=== PATIENT | female | born 1975 | race Caucasian/White ===

== ENCOUNTER → 2020-11-28 13:58 | Outpatient (CLI) | payer SELFPAY ==
[2020-11-28 15:21] LABS: Absolute Lymphocyte Count 1.73 X10^3/uL (0.83-4.51); Absolute Neutrophil Count 2.9 X10^3/uL (2.0-7.7); Basophil# 0.04 X10^3/uL; Basophil% 0.8 % (0-1); Eosinophil# 0.04 X10^3/uL; Eosinophils% 0.8 % (0-5); Hematocrit 44.9 % (37-47); Hemoglobin 14.1 g/dL (12.0-15.0); Lymphocyte # 1.73 X10^3/ul (4.0); Mean Corp Hgb Conc 31.4 g/dL (32-36); Mean Corpuscular Hgb 28.1 pg (27.0-32.0); Mean Corpuscular Volume 89.4 fL (81-99); Mean Platelet Vol. 9.3 fl (6.2-12.0); Monocyte# 0.38 X10^3/uL; Monocyte% 7.5 % (0-10); NRBC Flagged by Analyzer 0 % (0-5); Neutrophil # 2.89 X10^3/uL (2.7-7.7); Neutrophil % 56.7 % (47-70); Platelet Count 312 K/mm3 (150-450); RBC Distribution Width CV 12.9 % (11.6-14.6); RBC Distribution Width SD 42.6 fl (35.1-43.9); Red Blood Count 5.02 M/mm3 (4.2-5.4); White Blood Count 5.1 K/mm3 (4.4-11.0)
[2020-11-28 16:04] LABS: AST(SGOT) 5 U/L (15-37); Alanine Aminotransfer ALT/SGPT 23 U/L (13-56); Albumin, Serum 3.8 g/dL (3.2-5.0); Alkaline Phosphatase 54 U/L (45-117); Anion Gap 6 (5-15); BUN 13 mg/dL (7-18); BUN/Creat Ratio 17.9 RATIO (10-20); Calcium,Total 9.4 mg/dL (8.5-10.1); Chloride 105 mmol/L (98-107); Creatinine, Serum 0.73 mg/dL (0.55-1.02); EST Glomerular Filtration Rate 93 mL/min (>60); Est Glom Filt Rate - Afr Amer 113 mL/min (>60); Estradiol 157.6 pg/mL; Free T3 2.6 pg/mL (2.18-3.98); Globulin 3.7 g/dL (2.2-4.2); Glucose 79 mg/dL (74-106); Potassium 3.7 mmol/L (3.5-5.1); Protein, Total 7.5 g/dL (6.4-8.2); Sodium Level 138 mmol/L (136-145); T4 Free Direct 1.01 ng/dL (0.76-1.46); Thyroid Stim Hormone (TSH) 0.98 uIU/mL (0.358-3.74)
[2020-11-28 17:03] LABS: Progesterone Level 0.53 ng/mL (See Comment); Vitamin B12 570 pg/mL (211-911); Vitamin D,25 Hydroxy 40.7 ng/mL
== END ==
PROVIDERS: PCP Specialist; Referring Provider Specialist; Visit Provider Specialist
DX: E55.9 Vitamin D deficiency, unspecified (principal); E28.8 Other ovarian dysfunction; R53.83 Other fatigue
CPT/HCPCS: 36415; 80053; 82306; 82607; 82627; 82670; 84144; 84403; 84439; 84443; 84481; 85025; 82626

== ENCOUNTER → 2025-06-29 | Outpatient (CLI) | payer OTHER, SELFPAY ==
[2025-06-29 12:43] LABS: AST(SGOT) 10 U/L (<=31); Alanine Aminotransfer ALT/SGPT 13 U/L (<=34); Albumin, Serum 4.1 g/dL (3.5-5.0); Alkaline Phosphatase 49 U/L (35-104); Bilirubin, Direct 0.18 mg/dL (0.00-0.30); Cholesterol 242 mg/dL (<=200); Globulin 2.8 g/dL (2.2-4.2); Low Density Lipoprotein Calc. 163 mg/dL; Triglycerides 121 mg/dL; Very Low Density Lipoprotein 24 mg/dL (5-40); cholesterol:hdl ratio screen 4.41
--- OUTSIDE RECORDS SUMMARY | 2025-06-29 13:28 | XMS RPT_ITS | CCD ---
Author Organization [facility] Care Team Providers Care Interventional Tech Name Role Phone Yolanda He NP Attending Unavailable Guy Siegel Primary Care Unavailable Guy Siegel Referring Unavailable Guy Siegel Primary Care Unavailable Roselyn Cobb Attending Unavailable Guy Siegel Primary Care Unavailable Murray Marie Attending Unavailable SELF Referring Unavailable FLAKITO HUFF JR Attending Unavailable Unavailable Primary Care Provider Unavailsd soto Allergies Allergy Classification Reported Allergen(s) Allergy Type Date of Onset Reaction(s) Facility (2 sources) Cephalexin; Translations: [CEPHALEXIN] Drug Allergy 08-19-2008 Rash, Itching [facility] Repository Medications Current Medications Medication Drug Class(es) Dates Sig (Normalized) Sig (Original) azithromycin 500 mg oral tablet (1 source) Macrolide Antimicrobial Start: 03-08-2025 End: 03-11-2025 take 1 tablet by mouth once daily azithromycin (ZITHROMAX) 500 mg tablet Indications: Bacterial sinusitis Take 1 tablet by mouth once daily for 3 days. 3 tablet 03/08/2025 03/11/2025 Active cephalexin 500 mg oral capsule (1 source) Cephalosporin Antibacterial Start: 08-12-2008 CEPHALEXIN 500 MG CAP Indications: Cellulitis and abscess of unspecified site Take one(1) tablet four(4) times daily. 40 0 08/12/2008 Active predniSONE 20 mg oral tablet (1 source) Start: 08-25-2008 PREDNISONE 20 MG TAB Indications: Other specified viral exanthemata Take 3 tablets daily for 4 days, then 2 tablets daily for 4 days then 1 tablet daily for 4 days then 1/2 tablet daily until gone. 26 0 08/25/2008 Active triamcinolone acetonide 1 mg/ml topical cream (1 source) Corticosteroid Start: 08-12-2008 triamcinolone acetonide(KENALOG 0.1 % TOPICAL CREAM) Indications: Other atopic dermatitis and related conditions Apply to affected area(s) 2-3 times daily. 45 grams 0 08/12/2008 Active Problems Problem Classification Problem Date Documented Da te Episodic/Chronic Bacterial infection; unspecified site (1 source) Other specified bacterial agents as the cause of diseases classified elsewhere; Translations: [Bacterial sinusitis] Onset: 03-08-2025 Episodic Other upper respiratory infections (2 sources) Chronic sinusitis, unspecified; Translations: [Bacterial sinusitis] Onset: 03-08-2025 03-08-2025 Chronic Results Test Name Value Interpretation Reference Range Facil ity CNOVon 03-08-2025 CNOV Office Visit ([facility] ) RERE RONQUILLO ([id number]) 1975 F Date Time Provider Department 03/08/25 7:35 PM FLAKITO HUFF JR [facility] During your visit today, we recorded the following information about you: Temperature Pulse Respiration Blood pressure 98.2 degrees 104/minute 18/minute 132/88 Weight Last Period 63.5 kg 02/18/25 Flakito Huff Jr., GRAVITY PROSPECTING SUPERVISOR.WEALTH MANAGEMENT MANAGER 03/08/2025 8:52 PM Signed - Fill and start the Augmentin (amoxicillin/clavulanat e) prescription sent to your pharmacy and take it exactly as directed to treat your sinus infection. - Continue your home remedies (such as garlic and tea) if you find them helpful. - You declined nasal decongestants and cough medicine today; do not start these unless your symptoms change and you wish to try them. Flakito Huff Jr., GRAVITY PROSPECTING SUPERVISOR.WEALTH MANAGEMENT MANAGER 03/08/2025 8:59 PM Signed [facility] JEAN Millerkristel Ronquillo is a 49 year old female. Patient presents with: Fever: Chills, stuffy nose Started yesterday HPI Sinus Infection: - Reports fever and chills last night, managed with Tylenol. - Currently experiencing nasal congestion and clear rhinorrhea. - Denies significant pain today; managed with natural remedies every few hours. - Denies nausea, emesis, headaches, or significant myalgias. - Reports severe fatigue. - Denies need for nasal decongestants or cough medicine. - Allergic to cephalexin; no known allergies to Augmentin or azithromycin. Review of Systems Constitutional: (+) fever, (+) chills, (+) fatigue Head: (-) headache Ears/Nose/Mouth/Throat: (+) nasal congestion, (+) rhinorrhea, (+) facial pain Gastrointestinal: (-) nausea, (-) vomiting Musculoskeletal: (-) myalgia Objective BP 132/88 Pulse 104 Temp 36.8 ?C (98.2 ?F) Resp 18 Wt 63.5 kg (140 lb) LMP 02/18/2025 (Approximate) SpO2 100% Physical Exam General: No acute distress. HEENT: Bilateral maxillary sinus tenderness to palpation, no submandibular or anterior cervical lymphadenopathy, right tympanic membrane pearly cabrales with no signs of infection, left tympanic membrane pearly cabrales with no signs of infection, oropharynx unremarkable, bilateral turbinate edema with mild erythema and some drainage. CV: Heart sounds normal, regular rhythm. Resp: Lungs clear to auscultation. Abd: Bowel sounds normal, no tenderness to palpation. {1. Bacterial sinusitis (J32.9) - Bilateral maxillary sinus tenderness to palpation, bilateral turbinate edema, mild erythema, and drainage observed on exam. - No submandibular or anterior cervical lymphadenopathy. - Tympanic membranes are pearly cabrales bilaterally with no signs of infection. - Oral pharynx is unremarkable. - Lungs clear to auscultation. - Discussed treatment options including Augmentin and Zithromax. - Patient has a documented allergy to cephalexin. - Prescribed Zithromax. - Patient declined nasal decongestants and cough medicine. - Advised to monitor symptoms and report any worsening. Recording using BullGuard software for draft documentation of the visit was discussed with the patient/authorized event representative; all questions welcomed and answered. Patient/authorized event representative agreed to proceed MDM Procedures Referring Provider: SELF [[id number]] Allergies As of Date: 03/08/2025 Noted Allergy Reaction CEPHALEXIN 08/19/2008 2 - Rash 9 - Itching Date Reviewed: 03/08/2025 Reviewed by: Flakito Huff Jr., GRAVITY PROSPECTING SUPERVISOR.WEALTH MANAGEMENT MANAGER - Fully Assessed Reason for Visit: Fever [47] Cmt: Chills, stuffy nose Started yesterday Primary Visit Diagnosis:Bacterial sinusitis [J32.9, B96.89] Order(s):azithromycin (ZITHROMAX) 500 mg tabletTake 1 tablet by mouth once daily for 3 days.Disp: 3 tabletRfl: 0 Prescriptions as of 03/08/2025 - azithromycin (ZITHROMAX) 500 mg tablet Take 1 tablet by mouth once daily for 3 days. - PREDNISONE 20 MG TAB Take 3 tablets daily for 4 days, then 2 tablets daily for 4 days then 1 tablet daily for 4 days then 1/2 tablet daily until gone. - triamcinolone acetonide(KENALOG 0.1 % TOPICAL CREAM) Apply to affected area(s) 2-3 times daily. - CEPHALEXIN 500 MG CAP Take one(1) tablet four(4) times daily. Problem List As Of Date: 03/08/2025 (None) Other instructions from your clinician: - Fill and start the Augmentin (amoxicillin/clavulanat e) prescription sent to your pharmacy and take it exactly as directed to treat your sinus infection. - Continue your home remedies (such as garlic and tea) if you find them helpful. - You declined nasal decongestants and cough medicine today; do not start these unless your symptoms change and you wish to try them. Prescriptions ordered this encounter Disp Refills Start End AZITHROMYCIN 500 MG TABLET 3 ta* 0 03/08/2025 03/11/2025 Route: PO Sig: Take 1 tablet by mouth once daily for 3 days. Encounter Status:Closed by (more content not included)... Normal [facility] Vital Signs Date Time Vital Sign Value Performing Clinician Garett greene 03-08-2025 20:20-0400 Body temperature 98.2 [degF] Flakito Huff Jr., APRN.FELIPE Work Phone: [facility] 03-08-2025 20:20-0400 Body weight 63.5 kg Flakito Huff Jr., GRAVITY PROSPECTING SUPERVISOR.FELIPE Work Phone: [facility] 03-08-2025 20:20-0400 Diastolic blood pressure 88 mm[Hg] Flakito Daria Jr., GRAVITY PROSPECTING SUPERVISOR.WEALTH MANAGEMENT MANAGER Work Phone: [facility] 03-08-2025 20:20-0400 Heart rate 104 /min Flakito Huff Jr., GRAVITY PROSPECTING SUPERVISOR.WEALTH MANAGEMENT MANAGER Work Phone: [facility] 03-08-2025 20:20-0400 Respiratory rate 18 /min Flakito Huff Jr., GRAVITY PROSPECTING SUPERVISOR.WEALTH MANAGEMENT MANAGER Work Phone: [facility] 03-08-2025 20:20-0400 SaO2% (BldA) [Mass fraction] 100 % Flakito Huff Jr., GRAVITY PROSPECTING SUPERVISOR.WEALTH MANAGEMENT MANAGER Work Phone: [facility] 03-08-2025 20:20-0400 Systolic blood pressure 132 mm[Hg] Flakito Huff Jr., GRAVITY PROSPECTING SUPERVISOR.WEALTH MANAGEMENT MANAGER Work Phone: [facility] Encounters Encounter Date Encounter Type Care Provider Facility Start: 03-08-2025 End: 03-08-2025 Patient encounter procedure Flakito Huff GRAVITY PROSPECTING SUPERVISOR.WEALTH MANAGEMENT MANAGER Work Phone: [facility] Jean Comment on above: Bacterial sinusitis (Primary Dx) Start: 03-08-2025 End: 03-08-2025 ambulatory SELF Facility:[id number] Start: 01-20-2024 ambulatory Yolanda He NP Facili ty:[facility] Start: 08-12-2023 ambulatory Guy Morrow ty:[facility] Start: 06-30-2023 ambulatory Guy Morrow ty:[facility] Plan of Treatment Date Care Activity Detail Author Start: 06-06-2025 Influenza vaccination Influenz a Vaccine (Season Ended) [facility] Start: 06-06-2024 Covid-19 Vaccine ( season) Covid-19 Vaccine ( season) [facility] Start: 2022 Diabetes Screening Diabetes Screenin g [facility] Start: 2022 Lipid panel Lipid Screening [facility] Start: 2022 Screening for malign ant neoplasm of colon [facility] Start: 2017 Screening for malign ant neoplasm of breast Mammogram Screening [facility] Start: 1998 Screening for malign ant neoplasm of cervix Cervical Cancer Screening [facility] Start: 1996 Hepatitis B Vaccine (1 of 3 - 19+ 3-dose series) Hepatitis B Vaccine (1 of 3 - 19+ 3-dose series) [facility] Start: 1996 Urine microalbumin profile DTa P,Tdap,Td Vaccine (1 - Tdap) [facility] Start: 12-12-1995 Anxiety Screening Anxiety Screening [facility] Start: 12-12-1995 Depression Screening Depression Scre ening [facility] Start: 12-12-1995 Hepatitis C screening Hepatitis C Sc reening [facility] Start: 12-12-1995 HIV screening HIV Screening [facility] Payers Date Payer Category Payer Self-pay 2023 Unknown [id number] Unknown [id number] Unknown [id number] Unknown [id number] Social History Date Type Detail Facility Start: [facility]08[facility]20[facility] Start: 03-08-2025 Tobacco use and exposure Smoke less tobacco non-user [facility] Start: 03-08-2025 Alcoholic beverage intake Curr ent non-drinker of alcohol (finding) [facility] Start: 03-08-2025 History of Social function [facility] Start: 03-08-2025 Tobacco use panel [facility] Start: 1975 Sex assigned at Not on file [facility] Progress note 03-08-2025 Note Date & Type Note Facility 03-08-2025 Note HNO ID: [id number] Author: DARIA GILLETTE, SANDIP MACHADO.WEALTH MANAGEMENT MANAGER Service: ? Author Type: Nurse Practitioner Type: Progress Notes Filed: 03/08/2025 20:59 Note Text: [facility] ANDREAFRIDA Hina Ronquillo is a 49 year old female. Patient presents with: Fever: Chills, stuffy nose Started yesterday HPI Sinus Infection: - Reports fever and chills last night, managed with Tylenol. - Currently experiencing nasal congestion and clear rhinorrhea. - Denies significant pain today; managed with natural remedies every few hours. - Denies nausea, emesis, headaches, or significant myalgias. - Reports severe fatigue. - Denies need for nasal decongestants or cough medicine. - Allergic to cephalexin; no known allergies to Augmentin or azithromycin. Review of Systems Constitutional: (+) fever, (+) chills, (+) fatigue Head: (-) headache Ears/Nose/Mouth/Throat: (+) nasal congestion, (+) rhinorrhea, (+) facial pain Gastrointestinal: (-) nausea, (-) vomiting Musculoskeletal: (-) myalgia Objective BP 132/88 Pulse 104 Temp 36.8 ?C (98.2 ?F) Resp 18 Wt 63.5 kg (140 lb) LMP 02/18/2025 (Approximate) SpO2 100% Physical Exam General: No acute distress. HEENT: Bilateral maxillary sinus tenderness to palpation, no submandibular or anterior cervical lymphadenopathy, right tympanic membrane pearly cabrales with no signs of infection, left tympanic membrane pearly cabrales with no signs of infection, oropharynx unremarkable, bilateral turbinate edema with mild erythema and some drainage. CV: Heart sounds normal, regular rhythm. Resp: Lungs clear to auscultation. Abd: Bowel sounds normal, no tenderness to palpation. {1. Bacterial sinusitis (J32.9) - Bilateral maxillary sinus tenderness to palpation, bilateral turbinate edema, mild erythema, and drainage observed on exam. - No submandibular or anterior cervical lymphadenopathy. - Tympanic membranes are pearly cabrales bilaterally with no signs of infection. - Oral pharynx is unremarkable. - Lungs clear to auscultation. - Discussed treatment options including Augmentin and Zithromax. - Patient has a documented allergy to cephalexin. - Prescribed Zithromax. - Patient declined nasal decongestants and cough medicine. - Advised to monitor symptoms and report any worsening. Recording using BullGuard software for draft documentation of the visit was discussed with the patient/authorized event representative; all questions welcomed and answered. Patient/authorized event representative agreed to proceed MDM Procedures [facility] History of Present illness Narrative 03-08-2025 Flakito Huff Jr., GRAVITY PROSPECTING SUPERVISOR.WEALTH MANAGEMENT MANAGER - 03/08/2025 8:58 PM EDT Note Date & Type Note Facility 03-08-2025 History of Presen t illness Narrative [facility] JEAN Ronquillo is a 49 year old female. Patient presents with: Fever: Chills, stuffy nose Started yesterday HPI Sinus Infection: - Reports fever and chills last night, managed with Tylenol. - Currently experiencing nasal congestion and clear rhinorrhea. - Denies significant pain today; managed with natural remedies every few hours. - Denies nausea, emesis, headaches, or significant myalgias. - Reports severe fatigue. - Denies need for nasal decongestants or cough medicine. - Allergic to cephalexin; no known allergies to Augmentin or azithromycin. Review of Systems Constitutional: (+) fever, (+) chills, (+) fatigue Head: (-) headache Ears/Nose/Mouth/Throat: (+) nasal congestion, (+) rhinorrhea, (+) facial pain Gastrointestinal: (-) nausea, (-) vomiting Musculoskeletal: (-) myalgia Objective BP 132/88 Pulse 104 Temp 36.8 C (98.2 F) Resp 18 Wt 63.5 kg (140 lb) LMP 02/18/2025 (Approximate) SpO2 100% Physical Exam General: No acute distress. HEENT: Bilateral maxillary sinus tenderness to palpation, no submandibular or anterior cervical lymphadenopathy, right tympanic membrane pearly cabrales with no signs of infection, left tympanic membrane pearly cabrales with no signs of infection, oropharynx unremarkable, bilateral turbinate edema with mild erythema and some drainage. CV: Heart sounds normal, regular rhythm. Resp: Lungs clear to auscultation. Abd: Bowel sounds normal, no tenderness to palpation. {1. Bacterial sinusitis (J32.9) - Bilateral maxillary sinus tenderness to palpation, bilateral turbinate edema, mild erythema, and drainage observed on exam. - No submandibular or anterior cervical lymphadenopathy. - Tympanic membranes are pearly cabrales bilaterally with no signs of infection. - Oral pharynx is unremarkable. - Lungs clear to auscultation. - Discussed treatment options including Augmentin and Zithromax. - Patient has a documented allergy to cephalexin. - Prescribed Zithromax. - Patient declined nasal decongestants and cough medicine. - Advised to monitor symptoms and report any worsening. Recording using BullGuard software for draft documentation of the visit was discussed with the patient/authorized event representative; all questions welcomed and answered. Patient/authorized event representative agreed to proceed MDM Procedures documented in this encounter [facility] Instructions 03-08-2025 Patient Instructions Note Date & Type Note Facility 03-08-2025 Instructions Flakito Huff Jr., APRN.CNP - 03/08/2025 8:52 PM EDT - Fill and start the Augmentin (amoxicillin/clavulanate) prescription sent to your pharmacy and take it exactly as directed to treat your sinus infection. - Continue your home remedies (such as garlic and tea) if you find them helpful. - You declined nasal decongestants and cough medicine today; do not start these unless your symptoms change and you wish to try them. documented in this encounter [facility] Evaluation note Note Date & Type Note Facility Evaluation note Diagnosis Bacterial sinusitis- Primary Unspecified sinusitis (chronic) documented in this encounter [facility] Summary Purpose Family History No Family History Records FoundNo Family History Records Found Advance Directives No Advanced Directives Records FoundNo Advanced Directives Records Found Additional Source Comments INFORMATION SOURCE (unrecogn ized section and content) DATE CREATED AUTHOR 01/20/2024 [facility] DATE CREATED AUTHOR AUTHOR'S ORGANRILEY ATTERRENCE 03/09/2025 [facility] nter Source Comments (unrecognize d section and content) In the event this informatio n is protected by the Federal Confidentiality of Alcohol and Drug Abuse Patient Records regulations: The Federal rules restrict any use of the information to criminally investigate or prosecute any alcohol or drug abuse patient.[facility] Reason for Visit (unrecogniz ed section and content) Reason Comments Fever Chills, stuffy noseS tarted yesterday FOR RECORDS PERTAINING TO PATIENTS WHO ARE OR HAVE BEEN ENROLLED IN A CHEMICAL DEPENDENCY/SUBSTANCEABUSE PROGRAM, SOME INFORMATION MAY BE OMITTED. This clinical summary was aggregated from multiple sources. Caution should be exercised in using it in the provision of clinical care. This summary normalizes information from multiple sources, and as a consequence, information in this document may materially change the coding, format and clinical context of patient data. In addition, data may be omitted in some cases. CLINICAL DECISIONS SHOULD BE BASED ON THE PRIMARY CLINICAL RECORDS. [facility] [employer]Copyright [facility]. provides no warranty or guarantee of the accuracy or completeness of information in this document.
== END | disposition home or self-care (01) ==
LOC: LAB 10:49
PROVIDERS: Referring Provider Internal Medicine Cardiovascular Disease; Visit Provider Internal Medicine Cardiovascular Disease
DX: R63.5 Abnormal weight gain (principal)
CPT/HCPCS: 36415; 80061; 80076; 84443

== ENCOUNTER → 2025-08-02 | Outpatient (CLI) | payer OTHER, SELFPAY ==
[2025-08-02 13:04] LABS: AST(SGOT) 9 U/L (<=31); Alanine Aminotransfer ALT/SGPT 15 U/L (<=34); Albumin, Serum 4.2 g/dL (3.5-5.0); Alkaline Phosphatase 48 U/L (35-104); Bilirubin, Direct 0.23 mg/dL (0.00-0.30); Cholesterol 259 mg/dL (<=200); Globulin 2.9 g/dL (2.2-4.2); Low Density Lipoprotein Calc. 185 mg/dL; Triglycerides 86 mg/dL; Very Low Density Lipoprotein 17 mg/dL (5-40); cholesterol:hdl ratio screen 4.38
== END | disposition home or self-care (01) ==
LOC: LAB 10:44
PROVIDERS: Referring Provider Physician Assistant Medical; Visit Provider Physician Assistant Medical
DX: E78.00 Pure hypercholesterolemia, unspecified (principal); R00.2 Palpitations; R53.83 Other fatigue; R63.5 Abnormal weight gain
CPT/HCPCS: 36415; 80061; 80076; 83695